=== PATIENT | male | born 1930 | race Caucasian/White ===

== ENCOUNTER 2017-06-28 16:23 | Inpatient (IN) | payer MEDICARE, OTHER ==
[~2017-06-28] VITALS: Ht 193 cm; Wt 104.3 kg
--- NOTE | 2017-06-28 17:00 | NUR ---
PT ARRIVED TO ROOM 2204 VIA WC AWAKE AND ALERT. RESP EVEN UNLABORED WITH NO DISTRESS NOTED. CAN EXPRESS NEEDS AND WANTS. NO C/O PAIN OR DISCOMFORT NOTED OR VOICED. TURN AND REPOSITION SELF AB DHRUV. IV STARTED TO R HAND TIMES 1 ATTEMPT. PT WAS ORIENTED TO CALL LIGHT SYSTEM. ASSESSSMENT COMPLETED. C/L IN REACH AT BEDSIDE.
[2017-06-28 17:04] LABS: BASOPHILS 0.2 % (0-2); EOSINOPHILS 0.1 % (0-7); HEMATOCRIT 31.3 % (42.0-54.0); HEMOGLOBIN 10.6 g/dL (13.5-17.5); IMMATURE GRANULOCYTES 1.8 % (0-5); MCH 35.2 pg (26.0-34.0); MCHC 33.9 g/dL (31.0-37.0); MEAN PLATELET VOLUME 10.8 fL (7.4-10.4); MONOCYTES 16.4 % (2-11); NEUTROPHILS 75.5 % (40-80); PLATELET COUNT 286 10x3/uL (130-400); RBC 3.01 10x6/uL (4.20-6.10); RDW 16.4 % (11.5-14.5); WBC 18.3 10x3/uL (4.8-10.8)
[2017-06-28 17:35] LABS: ANION GAP 21.4 mmol/L (8-16); BILIRUBIN - TOTAL 1.51 mg/dL (0.2-1.3); CARBON DIOXIDE 22.7 mmol/L (21.0-32.0); POTASSIUM - SERUM 4.1 mmol/L (3.5-5.1); PROTEIN - SERUM 6.5 g/dL (6.4-8.2)
[2017-06-28 17:59] LABS: CALCIUM 8.7 mg/dL (8.5-10.1)
[2017-06-28 18:00] LABS: CREATININE - SERUM 1.9 mg/dL (0.6-1.3)
[2017-06-28 18:01] LABS: ALBUMIN 3.5 g/dL (3.4-5.0)
[2017-06-28 18:03] LABS: INR 6.54 (0.85-1.17); PROTIME 56.1 SECONDS (11.6-15.0)
--- NOTE | 2017-06-28 18:06 | NUR ---
REC'D CALL FROM LAB ABOUT PT PT/INR 56.07/24.. CALL WAS PLACED TO DR. PEARSON'S AWAITING A RESPONSE.
[2017-06-28 18:32] VITALS: BP 183/60; BMI 28.0
[2017-06-28 20:00] VITALS: BP 183/82
--- NOTE | 2017-06-28 23:15 | NUR ---
REC'D. IN BED.SOMEWHAT DISORIENTED TO TIME AND SITUATION.BED ARMED.WILL CONTINUE TO MONITOR FOR ANY CHGES. AND FOLLOW CURRENT PLAN OF CARE
[2017-06-29] VITALS: BP 177/79
[2017-06-29 04:00] VITALS: BP 178/80
[2017-06-29 05:13] LABS: BASOPHILS 0.1 % (0-2); EOSINOPHILS 0.1 % (0-7); HEMATOCRIT 26.7 % (42.0-54.0); HEMOGLOBIN 9.2 g/dL (13.5-17.5); IMMATURE GRANULOCYTES 1.7 % (0-5); LYMPHOCYTES 11.4 % (15-50); MCH 35.7 pg (26.0-34.0); MCHC 34.5 g/dL (31.0-37.0); MCV 103.5 fL (80.0-100.0); MEAN PLATELET VOLUME 10.6 fL (7.4-10.4); MONOCYTES 15.9 % (2-11); NEUTROPHILS 70.8 % (40-80); PLATELET COUNT 282 10x3/uL (130-400); RBC 2.58 10x6/uL (4.20-6.10); RDW 16.1 % (11.5-14.5); WBC 14.5 10x3/uL (4.8-10.8)
[2017-06-29 05:22] LABS: ANION GAP 16.1 mmol/L (8-16); CALCIUM 8.1 mg/dL (8.5-10.1); CARBON DIOXIDE 25.8 mmol/L (21.0-32.0); CREATININE - SERUM 1.7 mg/dL (0.6-1.3); POTASSIUM - SERUM 3.9 mmol/L (3.5-5.1)
[2017-06-29 05:32] LABS: INR 6.94 (0.85-1.17); PROTIME 58.9 SECONDS (11.6-15.0)
--- NOTE | 2017-06-29 06:49 | HP ---
PATIENT: AMRITA MARTE MEDICAL RECORD: [id number] ACCOUNT: [id number] LOCATION:D.[id number] : 30 ADMISSION DATE: 06/28/17 HISTORY AND PHYSICAL EXAMINATION DATE OF ADMISSION: 06/28/2017 CHIEF COMPLAINT: Headaches, shortness of breath. HISTORY OF PRESENT ILLNESS: The patient is an 87-year-old gentleman who apparently 1 week ago became ill. The patient states that 5 days ago, he had fallen, striking his head. He had no loss of consciousness, but states that he continues to have chronic headaches. 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 He has increasing fatigue as well as shortness of breath. PAST MEDICAL HISTORY: Significant that he has had right knee surgery. He has also had UPPER INSPECTOR shunt placed. He has had bilateral knee replaced. He had a laminectomy L4-L5, bladder tumor removed in 1990. He has a pacemaker placed in 1999. He has had a history of atrial fibrillation, cardiomyopathy, congestive heart failure, sacroiliitis, restless legs syndrome, gout, depression, Alzheimer's, hypertension, hyperlipidemia and vitamin D deficiency. FAMILY HISTORY: Apparently, mother and father both of natural causes. One brother had lung cancer. SOCIAL HISTORY: The patient stopped smoking in 1979. 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 He is . ALLERGIES: He has known drug allergies. MEDICATIONS: Include Tylenol No 3 one every 4 hours p.r.n. severe pain, allopurinol 100 mg once a day, Crestor 10 mg once a day, Astelin nasal spray 2 sprays b.i.d. in each naris, bisoprolol fumarate 5 mg once a day, Robaxin 350 q.6 hours p.r.n. muscle spasm, Celexa 40 mg once a day, Aricept 5 mg once a day, finasteride 5 mg a day, Lasix 20 mg 1 p.o. every day, losartan 50 mg once a day, Namenda 10 mg b.i.d., nabumetone 500 mg b.i.d., Protonix 40 mg daily, KCl 10 mEq once a day, spironolactone 25 mg once a day, vitamin D3 1000 mg daily, and Coumadin 5 mg on Wednesday, Wednesday, Wednesday and 2.5 mg the remaining days. REVIEW OF SYSTEMS: CONSTITUTIONAL: The patient does report having headache. He denies any change in visual or auditory acuity. PULMONARY: He does report having increasing shortness of breath. CARDIOVASCULAR: He has had no chest pain, palpitation, PND, orthopnea. GASTROINTESTINAL: No chronic nausea, vomiting, melena or hematochezia. GENITOURINARY: No urgency, frequency, or dysuria. PHYSICAL EXAMINATION: GENERAL: He is a very ill appearing male whose weight is 231. VITAL SIGNS: His blood pressure was 70/34 and recheck 88/60, pulse was 88 and regular. He was afebrile. HEENT: His head is normocephalic. No lesions. Ears: TMs clear. Eyes: Pupils equal, round, reactive to light. His extraocular movements are intact. His nasal cavity clear. Oropharynx clear. HISTORY AND PHYSICAL [id number] VOLKEMA,AMRITA NECK: Supple. There is no adenopathy. HEART: His heart has a regular rate and rhythm. LUNGS: His lungs are clear. ABDOMEN: The abdomen is soft. Bowel sounds positive. He does have some suprapubic tenderness. EXTREMITIES: Lower extremities have no edema. LABORATORY DATA: White count is elevated at 14,000 today. ASSESSMENT: Hypotension with history of hypertension, leukocytosis etiology unknown, history of normal pressure hydrocephalus with a UPPER INSPECTOR shunt, hyperlipidemia, hypertension, history of atrial fibrillation with pacemaker placement, knee replacement, lumbar laminectomy in the past, and history of congestive heart failure. PLAN: The patient is admitted. Blood cultures will be obtained. He will also be placed on D5 normal saline at 100 cc an hour. He will also have a cranial CT. He will be placed on Rocephin 1 gram q.24 hours. Also will have urine as well as CMP on admission with PT/INR. TRANSINT:[id number] Voice Confirmation ID: [id number] DOCUMENT ID: [id number] FAVIAN KENNEDY MD at 0649 CC: [id number] DICTATION DATE: 06/28/171719 PRODUCTION SAMPLER: 06/28/171932 ADM IN [facility] [address] [place] [address]
--- NOTE | 2017-06-29 08:00 | NUR ---
PT ASSESSMENT COMPLETE AWAKE AND ALERT TO SURROUNDINGS CONFUSED TO PLACE AND SITUATION. REORIENTED TO PLACE AND TIME AND SITUATION. PT UP TO WHEELCHAIR TO CT AT THIS TIME PT WITH CRITICAL INR THIS AM OF GREATER THAN 6 DR KENNEDY HERE NEW ORDER FOR VITAMIN K WILL GIVE PER ORDER
[2017-06-29 08:45] VITALS: BP 129/69
[2017-06-29 12:12] VITALS: Ht 193 cm; Wt 104.3 kg
[2017-06-29 12:41] VITALS: BP 136/65
[2017-06-29 13:03] LABS: APPEARANCE HAZY (CLEAR); BILIRUBIN NEGATIVE (NEGATIVE); COLOR DK YELLOW (YELLOW); GLUCOSE NEGATIVE (NEGATIVE); KETONE NEGATIVE (NEGATIVE); NITRITE NEGATIVE (NEGATIVE); PROTEIN NEGATIVE (NEGATIVE); SPECIFIC GRAVITY 1.015 (1.005-1.020); UROBILINOGEN NORMAL (NORMAL)
[2017-06-29 13:11] LABS: BACTERIA FEW /hpf (NONE SEEN); EPITHELIAL CELLS 0-5 /hpf (0-5); HYALINE CAST RARE /lpf (NONE SEEN); MUCUS <1+ /lpf (NONE SEEN); RED CELLS - URINE 25-50 /hpf (0-5); WHITE CELLS - URINE 0-5 /hpf (0-5)
--- NOTE | 2017-06-29 14:24 | NUR ---
PT RESTING WELL IN BED WITH NO DISTRESS NOTED HAD BUTALBITAL EARLIER FOR HEADACH NOTED TO BE EFFECTIVE AT THIS TIME.
[2017-06-29 16:45] VITALS: BP 107/42
--- NOTE | 2017-06-29 18:39 | NUR ---
PT LYING IN BED WITH NO DISTRESS NOTED HAS CONFUSION NOTED COMPAINT OF DIZZINESS THIS AFTERNOON. ALL ADLS PER STAFF ASSIST.
[2017-06-29 20:00] VITALS: BP 124/67
--- NOTE | 2017-06-29 20:57 | NUR ---
REC'D. IN BED EYES CLOSED RESP. DEEP AND EVEN.BED ARMED WILL CONTINUE TO MONITOR FOR ANY CHGES. AND FOLLOW CURRENT PLAN OF CARE
[2017-06-30] VITALS: BP 133/64
--- NOTE | 2017-06-30 02:30 | NUR ---
PT RESTING IN BED WITH NO DISTRESS. RESPIRATIONS ARE EVEN AND UNLABORED. SIDE RAILS X 2. BED LOW. BED ALARM ON. CALL LIGHT IN REACH.
[2017-06-30 06:14] LABS: BASOPHILS 0.2 % (0-2); EOSINOPHILS 0.9 % (0-7); HEMATOCRIT 23.7 % (42.0-54.0); HEMOGLOBIN 8.1 g/dL (13.5-17.5); IMMATURE GRANULOCYTES 2.6 % (0-5); LYMPHOCYTES 15.4 % (15-50); MCH 35.7 pg (26.0-34.0); MCHC 34.2 g/dL (31.0-37.0); MCV 104.4 fL (80.0-100.0); MEAN PLATELET VOLUME 10.1 fL (7.4-10.4); MONOCYTES 14.8 % (2-11); NEUTROPHILS 66.1 % (40-80); PLATELET COUNT 251 10x3/uL (130-400); RBC 2.27 10x6/uL (4.20-6.10); RDW 16.6 % (11.5-14.5)
[2017-06-30 06:29] LABS: WBC 9.4 10x3/uL (4.8-10.8)
[2017-06-30 06:33] LABS: ANION GAP 12.2 mmol/L (8-16); CALCIUM 8.4 mg/dL (8.5-10.1); CARBON DIOXIDE 26.5 mmol/L (21.0-32.0); POTASSIUM - SERUM 3.7 mmol/L (3.5-5.1)
[2017-06-30 06:36] LABS: CREATININE - SERUM 1.2 mg/dL (0.6-1.3)
[2017-06-30 06:59] LABS: INR 1.51 (0.85-1.17); PROTIME 17.7 SECONDS (11.6-15.0)
[2017-06-30 09:36] VITALS: BP 93/66
[2017-06-30 13:21] VITALS: BP 122/41
--- NOTE | 2017-06-30 14:41 | NUR ---
pt seen for teacher of the deaf/hard of hearing note-c/o headache and pain pill given. has no other concerns or issues. call light i reach
[2017-06-30 17:02] VITALS: BP 116/56
[2017-07-01 04:44] LABS: BASOPHILS 0.2 % (0-2); EOSINOPHILS 1.1 % (0-7); IMMATURE GRANULOCYTES 2.9 % (0-5); LYMPHOCYTES 9.8 % (15-50); MCH 34.1 pg (26.0-34.0); MEAN PLATELET VOLUME 9.6 fL (7.4-10.4); MONOCYTES 11.3 % (2-11); NEUTROPHILS 74.7 % (40-80); PLATELET COUNT 252 10x3/uL (130-400); RDW 17.2 % (11.5-14.5); WBC 10.1 10x3/uL (4.8-10.8)
[2017-07-01 04:54] LABS: HEMATOCRIT 31.2 % (42.0-54.0); HEMOGLOBIN 10.6 g/dL (13.5-17.5); MCV 100.3 fL (80.0-100.0); PROTIME 14.4 SECONDS (11.6-15.0); RBC 3.11 10x6/uL (4.20-6.10)
[2017-07-01 04:55] LABS: INR 1.16 (0.85-1.17)
[2017-07-01 04:58] LABS: CALC OSMOLALITY 284 mosm/kg (275-300); CALCIUM 8.5 mg/dL (8.5-10.1); CARBON DIOXIDE 25.7 mmol/L (21.0-32.0); CHLORIDE - SERUM 106 mmol/L (98-107); GLUCOSE 100 mg/dL (74-106); POTASSIUM - SERUM 3.2 mmol/L (3.5-5.1); SODIUM 139 mmol/L (136-145); UREA NITROGEN 32 mg/dL (7-18); eGFR NON AFRICAN AMERICAN 75 mL/min (90-120)
[2017-07-01 05:00] VITALS: BP 137/62
--- NOTE | 2017-07-01 05:43 | NUR ---
PT IN BED WITH NO NEEDS. SIDE RAILS X 2. BED LOW. BED ALARM ON. CALL LIGHT IN REACH.
[2017-07-01] MEDS ORDERED: CARDIZEM CD240 MG PO (07:03)
[2017-07-01] MEDS ORDERED: ARICEPT10 MG PO (07:03)
[2017-07-01] MEDS ORDERED: LIPITOR10 MG PO (07:03)
[2017-07-01] MEDS ORDERED: COZAAR50 MG PO (07:03)
[2017-07-01] MEDS ORDERED: NAMENDA5 MG PO (07:04)
[2017-07-01] MEDS ORDERED: CELEXA20 MG PO (07:04)
[2017-07-01] MEDS ORDERED: TYLENOL W/CODEI1 TAB PO (07:04)
[2017-07-01] MEDS ORDERED: PROTONIX40 MG PO (07:05)
[2017-07-01] MEDS ORDERED: ELIQUIS2.5 MG PO (07:05)
[2017-07-01] MEDS ORDERED: ZYLOPRIM100 MG PO (07:05)
--- NOTE | 2017-07-01 08:00 | NUR ---
REC'D IN BED AWAKE AND ALERT TO SELF WITH NOTED CONFUSION. RESP EVEN AND UNALBORED WITH NO DISTRESS NOTED. CAN EXPRESS NEEDS AND WANTS.ASSESSMENT COMPLETED. C/L IN REACH. C/L IN REACH AT BEDSIDE.
[2017-07-01 08:33] VITALS: BP 135/59
--- NOTE | 2017-07-01 11:02 | NUR ---
DISCHARGE INSTRUCTIONS AND MEDICATIONS REVIEWED WITH PATIENT AND SPOUSE. SALINE LOCK REMOVED WITH TIP INTACT. QUESTIONS ANSWERED. TO FRONT DOOR PER WC.
--- NOTE | 2017-07-01 11:03 | NUR ---
Patient Name: AMRITA MARTE Admission Status: Urgent Accout number: [id number] Admission Date: 06-28-2017 : 1930 Admission Diagnosis:HYPOTENSION, UNSPECIFIED Attending: FAVIAN KENNEDY Current LOS: 3 Anticipated DC Date: Planned Disposition: Home Primary Insurance: MEDICARE A & B Discharge Planning Comments: CM met with patient to assess discharge planning needs. Patient lives independently at home with his Laila who will be driving him home at discharge. He has a cane, shower chair, and walker at home. He refuses HH at this time. He has one step to enter in his home. CM will continue to follow and assist with discharge planning needs. PCP in [facility] Laila () [phone] Inspector Automatic Typewriter: Margaret Hogue Patient Name: AMRITA MARTE Admission Status: Urgent Accout number: [id number] Admission Date: 06-28-2017 : 1930 Admission Diagnosis:HYPOTENSION, UNSPECIFIED Attending: FAVIAN KENNEDY Current LOS: 3 Anticipated DC Date: Planned Disposition: Home Primary Insurance: MEDICARE A & B Discharge Planning Comments: CM met with patient to assess discharge planning needs. Patient lives independently at home with his Laila who will be driving him home at discharge. He has a cane, shower chair, and walker at home. He refuses HH at this time. He has one step to enter in his home. CM will continue to follow and assist with discharge planning needs. PCP in [facility] Laila () [phone] Inspector Automatic Typewriter: Margaret Hogue * Is the patient Alert and Oriented? Yes 0 * How many steps to enter\exit or inside your home? 1 0 * PCP in [facility] 0 * Pharmacy IN [facility] 0 * Preadmission Environment Home with Family 0 * ADLs Independent 0 * Equipment Cane Shower Chair Walker 0 * List name and contact numbers for known caregivers / representatives who currently or will assist patient after discharge: Laila () [phone] 0 * Community resources currently utilized None 0 * Additional services required to return to the preadmission environment? No 0 * Can the patient safely return to the preadmission environment? Yes 0 * Has this patient been hospitalized within the prior 30 days at any hospital? No 0 Grand Total: 0
--- NOTE | 2017-08-03 07:19 | DS ---
PATIENT:AMRITA MARTE :30 MEDICAL RECORD: [id number] DISCHARGE SUMMARY ADMISSION DATE: 06/28/17 DISCHARGE DATE: 07/01/17 DATE OF ADMISSION: 06/28/2017. DATE OF DISCHARGE: 07/01/2017. CONDITION ON DISCHARGE: Improved. ADMITTING DIAGNOSES: Hypotension, history of hypertension, leukocytosis etiology unknown, history of normal pressure hydrocephalus, CARE CLINICIAN shunt, hyperlipidemia, hypertension, history of atrial fibrillation, pacemaker placement, knee replacement, lumbar laminectomy in the past, history of congestive heart failure. DISCHARGE DIAGNOSES: Hypotension, history of anemia, leukocytosis, dehydration, chronic kidney disease, heart failure, history of normal pressure hydrocephalus, dementia. HOSPITAL COURSE: This patient is an 87-year-old gentleman who presented to the clinic with a 1-week history of becoming ill, very weak, and continued to have chronic headaches. He had a CARE CLINICIAN shunt placed in the past, he had increasing fatigue as well as shortness of breath. PHYSICAL EXAMINATION: GENERAL: The patient is a very ill-appearing male. VITAL SIGNS: Weight was 231. His blood pressure was 70/34, on recheck it was 88/60. His pulse was 88, respirations were normal. He was afebrile. HEENT: Unremarkable. NECK: Supple. There was no adenopathy. HEART: Regular rate. LUNGS: Clear. He had no adenopathy. EXTREMITIES: Lower extremities had no edema. White count was elevated at 14,000. It was felt that the patient should be admitted. Blood cultures were obtained. He was started on D5 normal saline at 100 cc an hour. Cranial CT was performed. He was started on Rocephin 1 gram q.24 hours. Urine cultures were obtained as well. Chest x-ray showed no cardiomegaly, no active infiltrates. He had a cranial CT scan. The CT scan showed postoperative changes from shunt placement, chronic small vessel ischemic changes in the periventricular white matter, no acute intracranial abnormalities were noted. Abdominal pelvic CT revealed that he had had bilateral rectus sheath hematomas, left worse than the right, cardiomegaly was present, automatic implantable cardioverter defibrillator, sigmoid diverticulosis, fecal impaction, low density lesion noted in the left liver. The patient's white count was initially 18.3, his hemoglobin 10.6, hematocrit 31.3, and his platelets were 286. Sodium was 142, potassium 4.1, chloride 102, CO2 was 22.7, BUN was 43, creatinine 1.9, glucose 178. The patient's PT was elevated at 56, his INR was 6.54. His Coumadin had been held. Over the coming days, the patient's condition slowly began to improve. On the , he was stable. He was afebrile, pulse was 88, respirations were 20, his blood pressure was 135/59, and his O2 sat was 94%. White count was 10, hemoglobin 10.6, hematocrit 31.2, and platelets were 252. Sodium 139, potassium 3.2, chloride DISCHARGE SUMMARY REPORT [id number] VOLKEMA,AMRITA was 1.6, BUN was 32, creatinine was 1. The patient was discharged. DISCHARGE MEDICATIONS: He was discharged on Aricept 10 mg once a day, Lipitor 10 mg 1 p.o. every day, Cardizem 240 once a day, Cozaar 50 mg once a day, Tylenol No. 3 one every 4 hours p.r.n. severe pain, Celexa 40 mg 1 p.o. every day, Namenda 10 mg p.o. b.i.d., Protonix 40 mg once a day, allopurinol 100 mg once a day. He would also continue his Eliquis 2.5 mg b.i.d. Coumadin was stopped. DIET: He would be on a regular diet. ACTIVITIES: He would ambulate with a walker. FOLLOWUP: With me in 2 weeks. TRANSINT:[id number] Voice Confirmation ID: [id number] DOCUMENT ID: [id number] FAVIAN KENNEDY MD at 0719 CC: [id number] DICTATION DATE: 08/01/171425 LIGHT INDUSTRIAL SUPERVISOR: 08/02/17 1300 DIS IN 07/01/17 [id number] [place] [address]
== END 2017-07-01 11:06 | disposition home or self-care (01) | DRG 812 ==
LOC: D.MS 16:23
PROVIDERS: ADMIT Family Medicine
DX: D62 Acute posthemorrhagic anemia (principal); I13.0 Hypertensive heart and chronic kidney disease with heart failure and stage 1 through stage 4 chronic kidney disease, or unspecified chronic kidney disease; I95.9 Hypotension, unspecified; D72.829 Elevated white blood cell count, unspecified; E86.0 Dehydration; N18.9 Chronic kidney disease, unspecified; I50.9 Heart failure, unspecified; I10 Essential (primary) hypertension; I48.91 Unspecified atrial fibrillation; R51 Headache; Z98.2 Presence of cerebrospinal fluid drainage device; Z95.0 Presence of cardiac pacemaker; G25.81 Restless legs syndrome; G30.9 Alzheimer's disease, unspecified; F02.80 Dementia in other diseases classified elsewhere, unspecified severity, without behavioral disturbance, psychotic disturbance, mood disturbance, and anxiety

== ENCOUNTER → 2017-09-23 12:35 | Outpatient (CLI) | payer MEDICARE, OTHER ==
[2017-06-29 12:12] VITALS: BMI 28.0
[~2017-09-23 12:35] MED LIST: ARICEPT10 MG PO; CARDIZEM CD240 MG PO; CELEXA20 MG PO; COZAAR50 MG PO; ELIQUIS2.5 MG PO; LIPITOR10 MG PO; NAMENDA5 MG PO; PROTONIX40 MG PO; TYLENOL W/CODEI1 TAB PO; ZYLOPRIM100 MG PO
== END | disposition home or self-care (01) ==
LOC: D.CT 12:35
DX: S09.90XA Unspecified injury of head, initial encounter (principal); X58.XXXA Exposure to other specified factors, initial encounter; Y93.89 Activity, other specified; Y92.89 Other specified places as the place of occurrence of the external cause

== ENCOUNTER 2018-09-01 07:50 | Outpatient (CLI) | payer MEDICARE, OTHER ==
[~2018-09-01] VITALS: Ht 193 cm; Wt 103.2 kg
--- NOTE | ~2018-09-01 | OP ---
PATIENT NAME: AMRITA MARTE MEDICAL RECORD: [id number] :30 LOCATION:D.CAT ADMISSION DATE: SURGEON: DIDI WALTON MD DATE OF OPERATION: 09/01/2018 PREOPERATIVE DIAGNOSES: 1. End-of-life defibrillator. 2. Hypertension. 3. Cardiomyopathy. 4. Atrial fibrillation. POSTOPERATIVE DIAGNOSES: 1. End-of-life defibrillator. 2. Hypertension. 3. Cardiomyopathy. 4. Atrial fibrillation. PROCEDURE: Left subclavian vein defibrillator generator exchange. SURGEON: Didi Walton MD REPORT OF PROCEDURE: The patient's left chest was prepped and draped in sterile fashion. A 20 mL of 1% lidocaine with epinephrine was infused into the surrounding tissues. A skin incision was made overlying the indwelling defibrillator. Electrocautery was used to dissect through the subcutaneous tissues and the defibrillator was eviscerated through the wound. The 5 leads that were affixed to this were all taken out and fixed to the new defibrillator pacemaker. This was placed into the subcutaneous pouch and sutured down with a 0 Ti-Cron. We irrigated out the wound with antibiotic solution. The subcutaneous tissues were then reapproximated with interrupted 3-0 Vicryl and the skin was closed with running subcutaneous 5-0 Monocryl. COMPLICATIONS: None. CONDITION: Stable. ANESTHESIA: Local MAC. BLOOD LOSS: Minimal. TRANSINT:[id number] Voice Confirmation ID: [id number] DOCUMENT ID: [id number] DIDI WALTON MD CC: [id number] DICTATION DATE: 09/27/18 1455 TRANSFORMATION SPECIALIST: 09/27/18 1554 DEP CLI 09/01/[address] [address]
--- NOTE | ~2018-09-01 | HEMODYNAMI ---
PATIENT:AMRITA MARTE MEDICAL RECORD: [id number] : 30 LOCATION:[facility] ADMISSION DATE: 09/01/18 Generatedon:09/01/201810:55 Patient name: AMRITA MARTE Patient #: [id number] SSN: DO B: 1930 Date of study: 09/01/2018 Page: Of Hemodynamic Procedure Report Patient Data Patient Demographics Procedure consent was obtained First Name: AMRITA Gender: Male Last Name: ESTUARDO : 1930 Patient #: [id number] Age: 88 year(s) Race: Unknown Additional ID: [id number] Contact details [address]: [address] [place] [address] State: [place] City: [place] Zip code: [address] Past Medical History Allergies: No known allergies Admission Admission Data Admission Date: 09/01/2018 Admission Time: 7:50 Height (in.): 73 Height (cm.): 185.42 Lab Results Lab Result Date: 09/01/2018 Lab Result Time: 0:00 Biochemistry Name Units Result Min Max BUN mg/dl 18 --(---*)-- 7 18 Creatinine mg/dl 1 --(--*-)-- 0.6 1.3 CBC Name Units Result Min Max Hemoglobin g/dl 12 *-(----)-- 13.5 17.5 Coagulation Name Units Result Min Max INR units 1.14 --(---*)-- 0.85 1.17 PT sec 14.1 --(--*-)-- 11.6 15 Procedure Procedure Types Cath Procedure Diagnostic Procedure PPM/ICD Permanent Pacer Generator Exg. Sedation Charges Moderate Sedation up to 15 minutes Procedure Description Procedure Date Procedure Date: 09/01/2018 Procedure Start Time: 10:30 Procedure End Time: 10:54 Procedure Staff Name Function Franck Bella MD Assisting physician Sonia Pratt RN Nurse Fernanda Gomez RT Scrub Bettye Wheeler RT Monitor Procedure Data Cath Procedure Fluoroscopy Diagnostic fluoroscopy Total fluoroscopy Time: 0 time: 0 min min Diagnostic fluoroscopy Total fluoroscopy dose: 0 dose: 0 mGy mGy Estimated blood loss: 10 ml Procedure Complications No complications Procedure Medications Medication Administration Route Dosage Oxygen etCO2 Nasal cannula 2 l/min Lidocaine 2% added to field 20 Ancef (1Gm/50ml NS) I.V.P.B 1 g Ancef Irrigation Topical 1 g (1gm/500ml NS) Versed I.V. 1 mg Fentanyl I.V. 50 mcg Versed I.V. 1 mg Fentanyl I.V. 50 mcg Hemodynamics Rest HGB: 12 (g/dl) Heart Rate: 69 (bpm) Snapshots Pre Cath Intra NCS Post Cath Vital Signs Time Heart Resp SPO2 etCO2 NIBP (mmHg) Rhythm Pain Sedation Rate (ipm) (%) (mmHg) Status Level (bpm) 9:55:11 72 14 95 0 174/95(144) Paced 0 (11) 10(A) , No pain 9:59:31 70 24 93 23 168/99(147) Paced 0 (11) 10(A) , No pain 10:03:45 90 26 94 28.2 168/97(142) Paced 0 (11) 10(A) , No pain 10:07:57 89 15 93 21.5 171/105(138) Paced 0 (11) 10(A) , No pain 10:12:09 70 12 94 1.4 166/96(133) Paced 0 (11) 10(A) , No pain 10:16:19 73 23 97 1.4 163/93(133) Paced 0 (11) 10(A) , No pain 10:20:35 71 18 97 0 160/82(127) Paced 0 (11) 10(A) , No pain 10:24:49 71 13 96 20.8 149/83(112) Paced 0 (11) 10(A) , No pain 10:29:03 70 16 97 0 151/83(122) Paced 0 (11) 10(A) , No pain 10:33:15 52 18 94 4.4 146/79(117) Paced 0 (11) 9(A) , No pain 10:37:25 95 23 93 26 147/91(118) Paced 0 (11) 9(A) , No pain 10:41:39 48 14 96 20 145/83(118) Paced 0 (11) 9(A) , No pain 10:45:48 32 16 96 18.5 137/83(116) Paced 0 (11) 9(A) , No pain 10:50:04 32 13 94 19.3 137/76(112) Paced 0 (11) 10(A) , No pain 10:54:12 68 8 97 24.5 135/83(110) Paced 0 (11) 10(A) , No pain Medications Time Medication Route Dose Verified Delivered Reason Notes Effecti veness by by 9:53:13 Oxygen etCO2 2 Franck Peñalozaie used for Nasal l/min Anton Pratt RN procedure cannula 9:53:44 Lidocaine added 20ml Franck Juárez for local 2% to vial Anton Bella MD anesthetic field 10:02:39 Ancef I.V.P.B 1 g Franck Peñalozaie used for (1Gm/50ml Anton Pratt RN procedure NS) 10:02:43 Ancef Topical 1 g Franck Peñalozaie used for Irrigation Anton Pratt RN procedure (1gm/500ml NS) 10:28:42 Versed I.V. 1 mg Franck Scott for Anton Pratt RN sedation 10:28:48 Fentanyl I.V. 50 Franck Scott for mcg Anton Pratt RN sedation 10:37:14 Versed I.V. 1 mg Franck Scott for Anton Pratt RN sedation 10:37:18 Fentanyl I.V. 50 Franck Scott for monroe Pratt RN sedation Procedure Log Time Note 9:32:28 Patient Height : 73 inches 9:37:12 Diagnostic Cath status Elective 9:37:14 Sonia Pratt RN sent for patient. Start room use. 9:37:15 Time tracking: Regular hours (M-F 7:00 - 5:00) 9:37:21 Plan of Care:Hemodynamics will remain stable., Cardiac rhythm will remain stable., Comfort level will be maintained., Respiratory function will remain adequate., Patient/ family verbilizes understanding of procedure., Procedure tolerated without complication., Recovers from procedure without complications.. 9:38:21 Patient received from Pre/Post Procedure Room to [facility] 3 Alert and oriented. Tansferred to table in Supine position. 9:38:40 H&P Date Dictated: 08/18/2018 Within 30 days and on chart., H&P Addendum completed by physician on day of procedure. (MUST COMPLETE FOR ALL OUTPATIENTS). 9:38:42 Pre-procedure instructions explained to patient. 9:38:44 Family in waiting room. 9:38:46 Patient NPO since Midnight. 9:38:54 Patient allergic to No known allergies 9:39:00 Is the patient allergic to Iodine/contrast media? No. 9:39:02 Was the patient premedicated? Yes 9:39:37 Is patient on blood thinner?Yes 9:39:50 ACC The patient was administered the following blood thiners within the last 24 hours: Eliquis 9:39:55 Patient diabetic? No. 9:40:21 Snore? Yes 9:40:23 Sleep apnea? No 9:41:14 Dentures? No ? 9:41:19 Patient pain scale 0/10 ?. 9:41:26 IV patent on arrival in left forearm with 0.9% NaCl at [facility]. 9:42:11 Lab Result : BUN 18 mg/dl 9:42:11 Lab Result : Hemoglobin 12 g/dl 9:42:11 Lab Result : Creatinine 1 mg/dl 9:42:11 Lab Result : PT 14.1 sec 9:42:11 Lab Result : INR 1.14 units 9:42:17 Lab results completed and on chart. 9:53:13 Oxygen 2 l/min etCO2 Nasal cannula was administered by Sonia Pratt RN; used for procedure; 9:53:44 Lidocaine 2% 20ml vial added to field was administered by Franck Bella MD; for local anesthetic; 9:54:04 Vital chart was started 9:56:51 Left chest area was prepped with dura-prep and draped in sterile fashion 9:56:53 Alarms reviewed by R. N. 9:56:53 Sharps counted by scrub and verified by R.N. 9:56:59 ECG and BP/O2 sat monitors applied to patient. 9:57:05 Signed procedure consent form obtained from patient. 9:57:07 Baseline sample Acquired. 9:57:10 Full Disclosure recording started 9:57:16 Physician paged 10:02:39 Ancef (1Gm/50ml NS) 1 g I.V.P.B was administered by Buffie Pratt RN; used for procedure; 10:02:43 Ancef Irrigation (1gm/500ml NS) 1 g Topical was administered by Sonia Pratt RN; used for procedure; 10:09:36 5-0 Monocryl PS3 [id number] opened to sterile field. 10:09:40 3-0 Vicryl Single Pack [id number] opened to sterile field. 10:09:48 2-0 Ticron Multipack ([id number]) opened to sterile field. 10:10:19 Use device set ANTON PPM 10:10:34 Cautery Tip Infantry Assaultman opened to sterile field. 10:10:50 Mepilex Dressing ([id number]) opened to sterile field. 10:10:52 Cautery Pushbutton Pencil opened to sterile field. 10:11:22 Medtronic Viva XT CRTD Bi-V [id number] opened to sterile field. 10:12:16 Physician responded to page. 10:16:08 ICD GENERATOR BATTERY IS EOL 10:16:57 Medtronic artist representative TRUPTI PANCHALOE present for procedure. 10:17:43 Grounding pad site free from injury. 10:17:55 Grounding pad site Left thigh. 10:18:17 Pre sharps counted by scrub and verified by RN: Sutures: 7; Sponges: 5; Stick needles: 0; Skin needles: 2; Blade: 1; Cautery: 1 10:26:54 Physician arrived 10:26:55 --------ALL STOP TIME OUT------ 10:26:56 Final Timeout: patient, procedure, and site verified with staff and physician. All members of the team are in agreement. 10:27:12 Left chest site verified by team. 10:28:10 Fire Safety Assessment: A--An alcohol-based skin anteseptic being used preoperatively., B--The operative or invasive procedure is being performed above the xiphoid process or in the oropharynx., C--Open oxygen or nitrous oxide is being used., D--An ESU, laser, or fiber-optic light is being used., E--There are other possible contributors. 10:28:42 Versed 1 mg I.V. was administered by Sonia Pratt RN; for sedation; 10:28:48 Fentanyl 50 mcg I.V. was administered by Sonia Pratt RN; for sedation; 10:30:40 Procedure started. 10:30:45 Lidocaine 1% was administered to left subclavicular area by Franck Bella MD . 10:32:02 Pre sharps counted by scrub and verified by RN: Sutures: 7; Sponges: 5; Stick needles: 0; Skin needles: 2; Blade: 1; Cautery: 1 10:33:10 Incision made to left subclavicular area. 10:37:14 Versed 1 mg I.V. was administered by Sonia Pratt RN; for sedation; 10:37:18 Fentanyl 50 mcg I.V. was administered by Sonia Pratt RN; for sedation; 10:37:20 Generator pocket made/opened. 10:39:04 AICD was removed.. 10:39:38 AICD was inserted subcutaneously to left chest. 10:40:30 Atrial lead attachment was completed with 2-0 ticron. 10:40:35 Ventricular lead attachment was completed with 2-0 ticron. 10:40:47 Device pocket was irrigated with Ancef. 10:41:26 Subcutaneous closure was completed with 3-0 vicryl plus. 10:43:01 Skin closure was completed with 5-0 monocryl. 10:45:48 Parameters-- Generator: Mode: VVIR. Lower Rate: 70bpm. Upper Rate: 120bpm. 10:47:41 Parameters--Ventricular P/R Wave: 3.5mV. Current: ?mA; Threshold: .75V; Impedence: ?OHMS. 10:48:03 Parameters--Atrial P/R Wave: .6mV. Current: ?mA; Threshold: ?V; Impedence: ?OHMS. 10:50:19 Parameters--Coronary sinus P/R Wave: ?mV. Current: ?mA; Threshold: 1.25V; Impedence: ?OHMS. 10:50:29 Lt Chest incision was dressed with Mepilex dressing. 10:50:48 Procedure ended.(Physican Out) 10:52:42 Post sharps counted by scrub and verified by RN: Sutures: 7; Sponges: 5; Stick needles: 0; Skin needles: 2; Blade: 1; Cautery: 1 10:53:06 Fluoroscopy time 00.00 minutes. 10:53:08 Fluoroscopy dose: 0 mGy 10:53:08 Flurop Dose total: 0 10:53:16 Post-procedure physical assessment completed. ASA score P 2 - A patient with mild systemic disease as per Franck Bella MD. 10:53:21 Post procedure rhythm: paced 10:53:23 Estimated blood loss: 10 ml 10:53:24 Post procedure instruction explained to patient.Patient verbalizes understanding. 10:53:24 Patient needs reinforcement of post procedure teaching. 10:53:54 Procedure type changed to Cath procedure, Diagnostic procedure, PPM/ICD, Permanent Pacer Generator Exg., Sedation Charges, Moderate Sedation up to 15 minutes 10:54:16 Procedure and supply charges have been captured, reviewed, submitted and are correct. 10:54:18 Procedure Complication : No complications 10:54:20 Vital chart was stopped 10:54:20 See physician's report for complete and final results. 10:54:21 Report given to Pre/Post Procedure Room. 10:54:23 Patient transfered to Pre/Post Procedure Room with Bed. 10:54:26 Procedure ended. 10:54:26 Full Disclosure recording stopped 10:54:30 End room use (Document Last) Device Usage Item Name Manufacture Quantity Catalog Hospital Part Current Minimal Lot# / Number Charge Number Stock Stock Serial# Code 5-0 Monocryl Ethicon 1 [id number] [id number] 5 PS3 [id number] 3-0 Vicryl Ethicon 1 [id number] 5 Single Pack [id number] 2-0 Ticron Ethicon 4 [id number] [id number] 5 Multipack ([id number]) Cautery Tip Microtek 1 [id number] [id number] [id number] 5 [employer] Mepilex Cardinal 1 [id number] 5 Dressing Health ([id number]) Cautery Microtek 1 [id number] [id number] 5 Pushbutton [employer] Pencil Medtronic Medtronic 1 [id number] 5 [id number] Viva XT CRTD 09/01/2018 Bi-V [id number] Signature Audit [place] Stage Time Signature Unsigned Intra-Procedure 09/01/2018 Bettye Wheeler 10:55:14 AM RT(R) Signatures Monitor : Bettye Wheeler Signature : RT Date : Time : [place] [id number] [facility] [address]
[2018-09-01] MEDS ORDERED: MAG-OX 400 MG400 MG PO (08:21)
[2018-09-01] MEDS ORDERED: LASIX20 MG PO (08:22)
[2018-09-01] MEDS ORDERED: PROSCAR5 MG PO (08:22)
[2018-09-01] MEDS ORDERED: XALATAN 0.0052.5 ML EACH EYE (08:27)
[2018-09-01] MEDS ORDERED: VITAMIN D31000 UNI2 PO (08:28)
[2018-09-01] MEDS ORDERED: VITAMIN B-121000 MCG PO (08:28)
[2018-09-01] MEDS ORDERED: NEURONTIN 300300 MG PO (08:29)
[2018-09-01] MEDS ORDERED: PROBIOTIC BLEN1 EACH PO (08:29)
[2018-09-01] MEDS ORDERED: OXYCONTIN10 MG PO (08:30)
[2018-09-01 08:35] VITALS: BP 149/76; Ht 193 cm; Wt 103.2 kg
[2018-09-01] MEDS ORDERED: MECLIZINE HCL12.5 MG PO (08:36)
[2018-09-01] MEDS ORDERED: PREVEGEN PO (08:37)
[2018-09-01] MEDS ORDERED: TESSALON PERLE100 MG PO (08:39)
[2018-09-01] MEDS ORDERED: CEFUROXIME500 MG PO (08:40)
[2018-09-01 09:06] LABS: HEMATOCRIT 34.9 % (42.0-54.0); MCH 33.6 pg (26.0-34.0); MCHC 34.4 g/dL (31.0-37.0); MCV 97.8 fL (80.0-100.0); MEAN PLATELET VOLUME 9.8 fL (7.4-10.4); RBC 3.57 10x6/uL (4.20-6.10); RDW 15.9 % (11.5-14.5); WBC 7.6 10x3/uL (4.8-10.8)
[2018-09-01 09:11] LABS: CALC OSMOLALITY 282 mosm/kg (275-300); CALCIUM 8.3 mg/dL (8.5-10.1); CARBON DIOXIDE 25.7 mmol/L (21.0-32.0); CHLORIDE - SERUM 104 mmol/L (98-107); GLUCOSE 105 mg/dL (74-106); POTASSIUM - SERUM 3.5 mmol/L (3.5-5.1); SODIUM 141 mmol/L (136-145); UREA NITROGEN 18 mg/dL (7-18); eGFR NON AFRICAN AMERICAN 75 mL/min (90-120)
[2018-09-01 09:13] LABS: APTT 33.1 SECONDS (22.8-39.4); INR 1.14 (0.85-1.17); PROTIME 14.1 SECONDS (11.6-15.0)
[2018-09-01] MEDS ORDERED: HYDROCODON-ACE1 EA10 PO (10:58)
--- NOTE | 2018-09-01 11:15 | NUR ---
ROOM AIR, NO RESP DISTRESS. LEFT CHEST DRESSING CDI, NO BLEEDING NOTED. NO C/O PAIN OR NAUSEA. VSS. AT BEDSIDE, CALL LIGHT WITHIN REACH.
--- NOTE | 2018-09-01 11:45 | NUR ---
LEFT PIV D/C'D WITH CATHETER INTACT, BAND AID TO SITE. UP TO BEDSIDE TO GET DRESSED.
--- NOTE | 2018-09-01 11:55 | NUR ---
DISCHARGE INSTRUCTIONS GIVEN, VERBALIZED UNDERSTANDING.
--- NOTE | 2018-09-01 12:05 | NUR ---
TAKEN OUT VIA WHEELCHAIR BY CATH PARK INTERPRETER. LEFT FACILITY WITH FAMILY AND ALL PERSONAL BELONGINGS.
== END 2018-09-01 12:05 | disposition home or self-care (01) ==
LOC: D.CATH 07:50
PROVIDERS: ATTEND Internal Medicine Interventional Cardiology
DX: I11.0 Hypertensive heart disease with heart failure (principal); I50.9 Heart failure, unspecified; I43 Cardiomyopathy in diseases classified elsewhere; I48.91 Unspecified atrial fibrillation; Z45.02 Encounter for adjustment and management of automatic implantable cardiac defibrillator